=== PATIENT | female | born 1945 | race Caucasian/White ===

== ENCOUNTER 2017-09-12 22:15 | Emergency (ER) | payer MEDICARE ==
[2017-09-12 22:15] VITALS: BMI 21.7
[2017-09-12] MEDS ORDERED: Sodium Chloride 0.9% 1,000 ML IV ONE (23:10)
[2017-09-12 23:23] LABS: BASO # 0.1 K/uL (0.0-0.2); BASO % 0.7 % (0.0-2.0); EOS # 0.1 K/uL (0.0-0.7); EOS % 1.1 % (0.0-4.0); HEMOGLOBIN 15.2 g/dL (11.0-16.0); LYMPH # 1.6 K/uL (1.0-4.3); LYMPH % 15.4 % (20.0-40.0); MEAN CELL VOLUME 91.7 fL (81.0-99.0); MEAN PLATELET VOLUME 9.3 fL (7.2-11.7); MONO # 0.9 K/uL (0.0-0.8); MONO % 8.5 % (0.0-10.0); NEUT # 7.5 K/uL (1.8-7.0); NEUT % 74.3 % (50.0-75.0); RBC 4.59 Mil/uL (3.80-5.20); RED CELL DISTRIBUTION WIDTH 13.3 % (11.5-14.5); WHITE BLOOD COUNT 10.1 K/uL (4.8-10.8)
[2017-09-12] MEDS ORDERED: Sodium Chloride 0.9% 1,000 ML ONE (23:36)
[2017-09-12 23:37] LABS: CALCIUM 8.8 mg/dl (8.6-10.4); GFR AFRICAN-AMERICAN > 60; GFR NON-AFRICAN AMERICAN > 60; LIPASE 98 U/L (23-300)
[2017-09-12 23:39] LABS: ALB/GLOB RATIO 1.3 (1.0-2.1); ALT/SGPT 21 U/L (9-52); AST/SGOT 37 U/L (14-36); BLOOD UREA NITROGEN 19 mg/dL (7-17)
[2017-09-12 23:45] LABS: URINE CLARITY CLEAR (Clear); URINE COLOR YELLOW (YELLOW)
[2017-09-12 23:46] LABS: URINE BILIRUBIN NEGATIVE (NEGATIVE); URINE BLOOD TRACE-LYSED (NEGATIVE); URINE GLUCOSE (UA) NEGATIVE (Normal)
[2017-09-12 23:47] LABS: URINE LEUKOCYTE ESTERASE NEGATIVE Leu/uL (Negative); URINE NITRATE NEGATIVE (NEGATIVE); URINE PROTEIN NEGATIVE (NEGATIVE); URINE UROBILINOGEN 0.2 mg/dL (0.2-1.0)
--- NOTE | 2017-09-12 23:58 | C.PDOC ---
History Of Present Illness Patient is a 72 y/o female who presents to the ED with complaints of cough, congestion, and diarrhea for the past 2 weeks. Patient reports to have been on a cruise on 08/31/17 and saw the cruise ship doctor with complaints of cough and congestion; patient was given zithromax and mucinex with no relief. On the , patient returned to doctor with additional weakness and received levaquin 500mg to take daily; patient admits to experiencing diarrhea the next day and has had watery stool greenish in color since. Denies change in diet, nausea, vomiting, abdominal pain, or hematochezia. Patient expresses concern for previous E. Coli intestinal infection. No other physical complaints at this time. Time Seen by Provider: 09/12/17 22:53 Chief Complaint (Nursing): Abdominal Pain History Per: Patient History/Exam Limitations: no limitations Onset/Duration Of Symptoms: Days (since 08/31/17) Current Symptoms Are (Timing): Still Present Associated Symptoms: Diarrhea. denies: Nausea, Vomiting Recent travel outside of the [place]: No Past Medical History Reviewed: Historical Data, Nursing Documentation, Vital Signs Vital Signs: Last Vital Signs Temp 97.8 F 09/12/17 22:18 Pulse 93 H 09/12/17 22:18 Resp 20 09/12/17 22:18 BP 144/85 09/12/17 22:18 Pulse Ox 97 09/13/17 00:35 - Medical History PMH: No Chronic Diseases Denies: Chronic Kidney Disease Other PMH: E. Coli intestinal infection Surgical History: No Surg Hx Family History: States: No Known Family Hx - Social History Hx Tobacco Use: No Hx Alcohol Use: No Hx Substance Use: No - Immunization History Hx Tetanus Toxoid Vaccination: No Hx Influenza Vaccination: No Hx Pneumococcal Vaccination: No Review Of Systems Respiratory: Positive for: Cough, Other (congestion) Gastrointestinal: Positive for: Diarrhea. Negative for: Nausea, Vomiting Physical Exam - Physical Exam Appears: Well, Non-toxic, No Acute Distress Skin: Normal Color, Warm, Diaphoretic Head: Atraumatic, Normacephalic Oral Mucosa: Moist Chest: Symmetrical Cardiovascular: Rhythm Regular, No Murmur Respiratory: Normal Breath Sounds, No Rales, No Rhonchi, No Wheezing Gastrointestinal/Abdominal: Soft, No Tenderness Neurological/Psych: Oriented x3, Normal Speech, Normal Cognition ED Course And Treatment - Laboratory Results Result Diagrams: 09/12/17 23:20 09/12/17 23:20 Lab Interpretation: No Acute Changes O2 Sat by Pulse Oximetry: 97 (room air) Pulse Ox Interpretation: Normal - Radiology CXR: Interpreted by Me CXR Interpretation: Yes: No Acute Disease Progress Note: Patient is unable to provide a stool specimen. She will follow up with her PMD in [place] tomorrow. Reevaluation Time: 00:53 Reassessment Condition: Improved (after IV fluids) Medical Decision Making Medical Decision Making: Plan: * CXR * stool culture * C Diff toxin A B stat * IV fluids Disposition Counseled Patient/Family Regarding: Studies Performed, Diagnosis, Need For Followup - Disposition Referrals: [facility] [Outside] Disposition: HOME/ ROUTINE Disposition Time: 00:54 Condition: STABLE Instructions: Acute Diarrhea (ED), Nutrition Tips for Relief of Diarrhea (ED) Forms: [facility] ([place]yan) - Clinical Impression Clinical Impression: Diarrhea - Scribe Statement The provider has reviewed the documentation as recorded by the Scribe Chrsisy Augustine All medical record entries made by the Scribe were at my direction and personally dictated by me. I have reviewed the chart and agree that the record accurately reflects my personal performance of the history, physical exam, medical decision making, and the department course for this patient. I have also personally directed, reviewed, and agree with the discharge instructions and disposition.
[2017-09-13 01:05] VITALS: BP 151/88; PULSE 85; RESP 18; TEMP 98; O2SAT 98
--- NOTE | 2017-09-13 08:47 | RAD ---
Chest x-ray two views History: Abdominal pain. Comparison: 04/02/2015 Findings: No focal infiltrate or effusion. Small nodular density at the right costophrenic angle may represent confluence shadows with ribs and vessels. Bibasilar breast and nipple shadows. Heart size within normal limits. Impression: No focal infiltrate or effusion.
== END 2017-09-13 01:05 | disposition home or self-care (01) ==
LOC: C.ER 22:15
DX: R19.7 Diarrhea, unspecified (principal)
CPT/HCPCS: 71046; 80053; 81001; 83690; 85025; 96360; 99285; J7040